=== PATIENT | male | born 2000 | race Caucasian/White ===

== ENCOUNTER 2023-10-18 20:57 | Emergency (ER) | payer OTHER, SELFPAY ==
[2023-10-18 21:00] VITALS: BP 153/86; PULSE 66; TEMP 36.9; O2SAT 99; BMI 32.1
--- NOTE | 2023-10-18 21:16 | ED_ITS ---
HPI - Abdominal Pain General Chief Complaint: Abdominal Pain Stated Complaint: Abdominal Pain Time Seen by Provider: 10/18/23 21:13 Source: patient Mode of arrival: walk-in Limitations: no limitations History of Present Illness HPI narrative: patient has history of bipolar anxiety. States was changed from Vraylar to Latuda and now Zyprexa. Tonight experiencing cramping pain . He is not sure if it is his anxiety. pain has improved now. No nausea or constipation. No fever or urinary symptoms Related Data Home Medications ?Medication ?Instructions ?Recorded ?Confirmed atorvastatin 10 mg tablet mg 10/18/23 guanfacine 1 mg tablet mg 10/18/23 guanfacine 2 mg tablet mg 10/18/23 lamotrigine 200 mg tablet mg 10/18/23 olanzapine 2.5 mg tablet mg 10/18/23 Allergies Allergy/AdvReac Type Severity Reaction Status Date / Time sulfamethoxazole AdvReac Unknown Verified 10/18/23 21:07 [From Bactrim] trimethoprim [From Bactrim] AdvReac Unknown Verified 10/18/23 21:07 Review of Systems ROS Status of ROS 10 or more systems reviewed and unremark able except as noted in history and below Exam Constitutional Vital Signs, click to edit/add: Last Vital Signs Temp 98.5 F 10/18/23 21:00 Pulse 66 10/18/23 21:00 Resp 18 10/18/23 21:00 BP 153/86 H 10/18/23 21:00 Pulse Ox 99 10/18/23 21:00 O2 Del Method Room Air 10/18/23 21:00 Common normals: no apparent distress, average body habitus, oriented x3, no limitations, healthy appearing, alert and well nourished [facility] Common normals: normocephalic and head/scalp atraumatic Eye Common normals: PERRL, EOMs intact bilaterally and conjunctivae normal Respiratory Common normals: normal respiratory effort, no retractions, no use of accessory muscles and clear to auscultation bilaterally Cardio Common normals: regular rate, regular rhythm, S1 normal heart sound and S2 normal heart sound GI Common normals: Normal to inspection, nondistended, normoactive bowel sounds present, soft to palpation and non-tender Extremity Common normals: normal to inspection and full ROM Neuro Common normals: oriented x3, CN's II-XII intact bilaterally, moves all extremities and no focal motor deficits Psych Appearance: grossly normal Course Vital Signs Vital signs: Vital Signs Temperature 98.5 F 10/18/23 21:00 Pulse Rate 66 10/18/23 21:00 Respiratory Rate 18 10/18/23 21:00 Blood Pressure 153/86 H 10/18/23 21:00 Pulse Oximetry 99 10/18/23 21:00 Oxygen Delivery Method Room Air 10/18/23 21:00 Temperature 98.5 F 10/18/23 21:00 Pulse Rate 66 10/18/23 21:00 Respiratory Rate 18 10/18/23 21:00 Blood Pressure 153/86 H 10/18/23 21:00 Pulse Oximetry 99 10/18/23 21:00 Oxygen Delivery Method Room Air 10/18/23 21:00 MDM - Abdominal Pain MDM Narrative Medical decision making narrative: patient presents with vague complaint of abdominal pain. he thinks it may be related to his mental health medication. He was switched from Vraylar to Latuda and now Zyprexa. His abdominal exam is neg. He has no urinary symptoms. abdominal xray with moderate stool in colon but otherwise unremarkable . labs neg except urine with mod back, 2-5 WBC but nitrite and leukocyte esterase neg. Patient informed he likely does not have UTI. Urine cx sent. He is asymptomatic at this time and will have him follow up with his doctor Lab Data Labs: Lab Results 10/18/23 10/18/23 Range/Units 21:34 22:25 WBC 11.6 H (4.0-11.0) 10^3/uL RBC 5.61 (4.70-6.10) 10^6/uL Hgb 14.9 (14.0-18.0) g/dL Hct 46.0 (42.0-54.0) % MCV 82.0 (80.0-94.0) fL MCH 26.6 (25.9-34.0) pg MCHC 32.4 (29.9-35.2) g/dL RDW 13.0 (11.0-15.0) % Plt Count 353 (150-450) 10^3/uL MPV 10.0 (9.5-13.5) fL Neut % (Auto) 64.6 (43.0-75.0) % Lymph % (Auto) 24.8 (20.5-60.0) % [place] % (Auto) 7.1 (1.7-12.0) % Eos % (Auto) 2.5 (0.9-7.0) % Baso % (Auto) 0.7 (0.2-2.0) % Neut # (Auto) 7.5 H (1.4-6.5) 10^3/uL Lymph # (Auto) 2.9 (1.2-3.8) 10^3/uL Jackson # (Auto) 0.8 (0.3-0.8) 10^3/uL Eos # (Auto) 0.3 (0.0-0.7) 10^3/uL Baso # (Auto) 0.1 (0.0-0.1) 10^3/uL Abs Immat Gran (auto) 0.03 (0.00-0.03) 10^3/uL Imm/Tot Granulo (auto) 0.3 (0.0-0.5) % Sodium 140 (136-145) mmol/L Potassium 3.5 (3.5-5.1) mmol/L Chloride 103 (98-107) mmol/L Carbon Dioxide 28.7 (21.0-32.0) mmol/L Anion Gap 11.8 BUN 14.0 (7.0-18.0) mg/dL Creatinine 0.97 (0.70-1.30) mg/dL Est GFR ( Amer) >60 (>=60) Est GFR (Non-Af Amer) >60 (>=60) BUN/Creatinine Ratio 14.4 Glucose 99 (74-106) mg/dL Lactate 1.7 (0.4-2.0) mmol/L Calcium 8.8 (8.5-10.1) mg/dL Total Bilirubin 0.3 (0.2-1.0) mg/dL AST 13 L (15-37) U/L ALT 35 (16-63) U/L Alkaline Phosphatase 90 (46-116) U/L Total Protein 7.3 (6.4-8.2) g/dL Albumin 4.2 (3.4-5.0) g/dL Globulin 3.1 g/dL Albumin/Globulin Ratio 1.4 Lipase 38.0 (16.0-77.0) U/L Urine Color Yellow (YELLOW) Urine Clarity Clear (CLEAR) Urine pH 7.5 (5.0-9.0) Ur Specific [place] 1.015 (1.005-1.025) Urine Protein Negative (NEG/TRACE) mg/dL Urine Glucose (UA) Negative (NEGATIVE) mg/dL Urine Ketones Negative (NEGATIVE) mg/dL Urine Occult Blood Negative (NEGATIVE) Urine Nitrite Negative (NEGATIVE) Urine Bilirubin Negative (NEGATIVE) Urine Urobilinogen 0.2 (0.2-1.0) EU/dL Ur Leukocyte Esterase Negative (NEGATIVE) Urine RBC 0-2 (0-2) #/HPF Urine WBC 2-5 A (NONE SEEN) #/HPF Ur Squamous Epith Cells None seen (NONE/RARE) #/LPF Urine Crystals Seen A (None Seen) #/HPF Amorphous Sediment Many Urine Bacteria Moderate A (NONE SEEN) #/HPF Urine Casts None seen (NONE SEEN) #/LPF Urine Mucus None seen (NONE SEEN) Ur Culture Indicated? Yes Imaging Data Abdominal x-ray: Radiologist's impression: ITS Impressions Chest/Abdomen X-ray 10/18/23 21:16 IMPRESSION: Moderate retained stool of the colon. No additional acute findings. Electronically authenticated by: AURELIANO RECIO Date: 10/18/2023 22:01 Discharge Plan Discharge Stand Alone Forms: Portal Instructions Chief Complaint: Abdominal Pain Clinical Impression: Abdominal pain Patient Disposition: Home, Self-Care Prescriptions / Home Meds: No Action lamotrigine 200 mg tablet atorvastatin 10 mg tablet olanzapine 2.5 mg tablet guanfacine 1 mg tablet guanfacine 2 mg tablet Print Language: Wallisian Instructions: Abdominal Pain (ED) Additional Instructions: follow up with your doctor in 2-3 days for recheck Referrals: JANAK ROCA [Primary Care Provider] - 1 week
--- NOTE | 2023-10-18 21:16 | XR_ITS ---
The [address] [address] Patient Name: ALMAZ GUAMAN MRN: [id number] date: 2000 Sex: M Assigned Patient Location: ER Current Patient Location: ER Accession/Order Number: [id number] Exam Date: 10/18/2023 21:30 Report Date: 10/18/2023 22:01 At the request of: CHERYL VALDEZ Procedure: XR acute abdomen series EXAM: XR acute abdomen series TECHNIQUE: Frontal view chest. Supine and upright views of the abdomen HISTORY: abdominal pain COMPARISON: None. FINDINGS: The heart and mediastinum are unremarkable. Lungs are clear. No evidence for bowel obstruction. Moderate retained stool within the proximal colon. No evidence for free intraperitoneal air. No abnormal abdominal calcifications. No acute osseous abnormality. XR/XR acute abdomen series IMPRESSION: Moderate retained stool of the colon. No additional acute findings. Electronically authenticated by: AURELIANO RECIO Date: 10/18/2023 22:01
[2023-10-18 21:46] LABS: Basophils Absolute Auto 0.1 10^3/uL (0.0-0.1); Basophils Percent Auto 0.7 % (0.2-2.0); Eosinophils Absolute Auto 0.3 10^3/uL (0.0-0.7); Eosinophils Percent Auto 2.5 % (0.9-7.0); Hemoglobin 14.9 g/dL (14.0-18.0); Immature Granulocytes Abs Auto 0.03 10^3/uL (0.00-0.03); Immature Granulocytes Pct Auto 0.3 % (0.0-0.5); Lymphocytes Absolute Auto 2.9 10^3/uL (1.2-3.8); Lymphocytes Percent Auto 24.8 % (20.5-60.0); Mean Corpuscular HGB Conc 32.4 g/dL (29.9-35.2); Mean Corpuscular Hemoglobin 26.6 pg (25.9-34.0); Monocytes Absolute Auto 0.8 10^3/uL (0.3-0.8); Monocytes Percent Auto 7.1 % (1.7-12.0); Neutrophils Absolute Auto 7.5 10^3/uL (1.4-6.5); Neutrophils Percent Auto 64.6 % (43.0-75.0); Platelet Count 353 10^3/uL (150-450); Red Blood Count 5.61 10^6/uL (4.70-6.10); White Blood Count 11.6 10^3/uL (4.0-11.0)
[2023-10-18 22:04] LABS: Lactate/Lactic Acid 1.7 mmol/L (0.4-2.0)
[2023-10-18 22:11] LABS: Alanine Aminotransferase 35 U/L (16-63); Albumin Globulin Ratio 1.4; Albumin Level 4.2 g/dL (3.4-5.0); Alkaline Phosphatase 90 U/L (46-116); Anion Gap 11.8; Aspartate Amino Transferase 13 U/L (15-37); BUN Creatinine Ratio 14.4; Bilirubin Total 0.3 mg/dL (0.2-1.0); Calcium 8.8 mg/dL (8.5-10.1); Carbon Dioxide 28.7 mmol/L (21.0-32.0); Chloride 103 mmol/L (98-107); Estimated GFR (African America >60 (>=60); Estimated GFR (Non-African Ame >60 (>=60); Globulin 3.1 g/dL; Glucose 99 mg/dL (74-106); Potassium 3.5 mmol/L (3.5-5.1); Sodium 140 mmol/L (136-145); Total Protein 7.3 g/dL (6.4-8.2)
[2023-10-18 22:31] LABS: Bilirubin Urine NEGATIVE (NEGATIVE); Blood Urine NEGATIVE (NEGATIVE); Clarity Urine CLEAR (CLEAR); Color Urine YELLOW (YELLOW); Glucose Urine UA NEGATIVE (NEGATIVE); Ketones Urine NEGATIVE (NEGATIVE); Leukocyte Esterase Urine NEGATIVE (NEGATIVE); Nitrite Urine NEGATIVE (NEGATIVE); Protein Urine NEGATIVE (NEG/TRACE); Specific Gravity Urine 1.015 (1.005-1.025); Urobilinogen Urine 0.2 EU/dL (0.2-1.0); pH Urine 7.5 (5.0-9.0)
--- NOTE | 2023-10-18 22:31 | PC.NURSE ---
patient c/o generalized abdominal discomfort. States he had one episode of diarrhea today. Denies N/V. He sees mental health and has been started and stopped on several different medications over the past few weeks, and started a new medication on Tuesday. He states he had a lot of anxiety over the weekend also. He believes his abdominal pain is most likely due to the combination of anxiety and the new medication, but he wants to make sure there is nothing wrong.
[2023-10-18 22:39] LABS: Urine Microscopic Indicated YES
[2023-10-18 22:40] LABS: Amorphous Sediment Urine MANY; Bacteria Urine MODERATE #/HPF (NONE SEEN); Cast Seen? NONE SEEN #/LPF (NONE SEEN); Crystals Seen? Seen #/HPF (None Seen); Mucus Urine NONE SEEN (NONE SEEN); RBC Urine 0-2 #/HPF (0-2); Squamous Epithelial Cell Urine NONE SEEN #/LPF (NONE/RARE); Urine Culture Indicated YES
== END 2023-10-18 22:59 | disposition home or self-care (01) ==
PROVIDERS: Emergency Provider Internal Medicine; PCP Family Medicine
DX: R10.9 Unspecified abdominal pain (principal); F41.9 Anxiety disorder, unspecified; F31.9 Bipolar disorder, unspecified; Z79.899 Other long term (current) drug therapy
CPT/HCPCS: 36415; 74022; 80053; 81001; 83605; 83690; 85025; 87086; 99285